=== PATIENT | female | born 1990 | race American Indian/Alaskan Native ===

== ENCOUNTER 2020-07-19 12:52 | Emergency (ER) | payer SELFPAY ==
[2020-07-19] MEDS ORDERED: DIPHtheria,PERTUSSIS(ACELL),TETANUS VACCINE/PF 0.5 ML VIAL IM ONE (14:37)
--- NOTE | 2020-07-19 14:37 | Event Note ---
ED Screening Note ED Screening Note: laceration to the left index finger occurred at 11:30 PM cut while opening a dockery wrapping with a knife no numbness or weakness tdap unsure pmhx asthma no allergies to meds LNMP: 06/28/2020 This initial assessment/diagnostic orders/clinical plan/treatment(s) is/are subject to change based on patients health status, clinical progression and re- assessment by fellow clinical providers in the ED. Further treatment and workup at subsequent clinical providers discretion. Patient/guardian urged not to elope from the ED as their condition may be serious if not clinically assessed and managed. Initial orders include: vshaped laceration to the palmar surface of the index finger no muscle/tendon involvement no signs of foreign body tdap ACC eval
[2020-07-19] MEDS ORDERED: LIDOCAINE (1%) 10 MG/1 ML VIAL 20 ML MDV INFILTRATI ONE (15:01)
--- NOTE | 2020-07-19 15:10 | Emergency Department Report ---
ED General Adult HPI - General Chief complaint: Extremity Injury, Upper Stated complaint: CUT FINGER Time Seen by Provider: 07/19/20 14:32 Source: patient Mode of arrival: Ambulatory Limitations: No Limitations - History of Present Illness Initial comments: 29-year-old -[place] female patient presents with complaints of laceration to the left index finger today. Patient states she cut the finger with a clean knife while trying to open a pack of dockery. She denies any difficulty moving the finger or loss of sensation. Patient rates her pain as a 7/10 in severity. She is unsure of her last tetanus vaccination. -: Sudden Severity scale (0 -10): 6 - Related Data Previous Rx's Medication Instructions Recorded Last Taken Type Ibuprofen [Motrin 800 MG tab] 800 mg PO Q8HR PRN #21 tablet 07/19/20 Unknown Rx Mupirocin [Bactroban 2% OINT] 1 applic TP TID 7 Days #1 tube 07/19/20 Unknown Rx Allergies Allergy/AdvReac Type Severity Reaction Status Date / Time No Known Allergies Allergy Unverified 07/19/20 13:49 ED Review of Systems ROS: Stated complaint: CUT FINGER Other details as noted in HPI Constitutional: denies: chills, fever, malaise Musculoskeletal: denies: arthralgia Skin: as per HPI. denies: rash, change in color ED Past Medical Hx - Past Medical History Previous Medical History?: Yes Hx Hypertension: Yes - Surgical History Past Surgical History?: No - Medications Home Medications: Home Medications Medication Instructions Recorded Confirmed Last Taken Type Ibuprofen [Motrin 800 MG tab] 800 mg PO Q8HR PRN #21 tablet 07/19/20 Unknown Rx Mupirocin [Bactroban 2% OINT] 1 applic TP TID 7 Days #1 tube 07/19/20 Unknown Rx ED Physical Exam - General Limitations: No Limitations General appearance: alert, in no apparent distress, obese - Head Head exam: Present: atraumatic, normocephalic - Respiratory Respiratory exam: Absent: respiratory distress - Cardiovascular Cardiovascular Exam: Present: regular rate - Extremities Exam Extremities exam: Present: full ROM - Back Exam Back exam: Present: full ROM - Neurological Exam Neurological exam: Present: alert, oriented X3 - Psychiatric Psychiatric exam: Present: normal affect, normal mood - Skin Skin exam: Present: warm, dry, normal color. Absent: intact (Approximately 2 cm laceration noted to anterior distal left index finger with minimal bleeding; no obvious foreign bodies are noted patient has full range of motion of the finger and normal perfusion; and sensation), rash ED Course Vital Signs 07/19/20 13:49 Temperature 98 F Pulse Rate 73 Respiratory 22 Rate Blood Pressure 129/48 [Right] O2 Sat by Pulse 100 Oximetry - Laceration /Wound Repair Left Finger Wound Length (cm): 2 Wound's Depth, Shape: linear Wound Explored: no foreign body removed Irrigated w/ Saline (ccs): 40 Anesthesia: 1% Lidocaine Volume Anesthetic (ccs): 2 Suture Size/Type: 4:0, proline Number of Sutures: 4 (Simple interrupted) Layer Closure?: No Sterile Dressing Applied?: Yes Progress: Minimal bleeding occurred. Patient tolerated procedure well without any immediate complications. Normal perfusion and range of motion of finger noted post ED Medical Decision Making - Medical Decision Making 29-year-old -[place] female patient presents with complaints of laceration to the left index finger today. Patient states she cut the finger with a clean knife while trying to open a pack of dockery. She denies any difficulty moving the finger or loss of sensation. Patient rates her pain as a 7/10 in severity. She is unsure of her last tetanus vaccination. Laceration repair. Patient tolerated procedure well without any immediate complications. Discussed wound care and strict return precautions in detail with patient who verbalized understanding. Patient to return to the ED in 10 days for suture removal. Prescription for mupirocin given for infection prevention. Critical care attestation.: If time is entered above; I have spent that time in minutes in the direct care of this critically ill patient, excluding procedure time. ED Disposition Clinical Impression: Laceration of finger Qualifiers: Encounter type: initial encounter Finger: index finger Damage to nail status: without damage Foreign body presence: without foreign body Laterality: left Qualified Code(s): S61.211A - Laceration without foreign body of left index finger without damage to nail, initial encounter Disposition: TO HOME OR SELFCARE Is pt being admited?: No Condition: Stable Instructions: Sutured Wound Care Additional Instructions: Return to the emergency department in 10 days for suture removal Prescriptions: Mupirocin [Bactroban 2% OINT] 1 applic TP TID 7 Days #1 tube Ibuprofen [Motrin 800 MG tab] 800 mg PO Q8HR PRN #21 tablet PRN Reason: pain
[2020-07-19 16:08] VITALS: BP 147/67
== END 2020-07-19 16:08 | disposition home or self-care (01) ==
LOC: ED 12:52
DX: S61.211A Laceration without foreign body of left index finger without damage to nail, initial encounter (principal); I10 Essential (primary) hypertension; X58.XXXA Exposure to other specified factors, initial encounter; Y93.89 Activity, other specified; Y92.89 Other specified places as the place of occurrence of the external cause; Y99.8 Other external cause status
CPT/HCPCS: 90471; 90715; 99281

== ENCOUNTER 2020-08-02 12:40 | Emergency (ER) | payer SELFPAY ==
[2020-08-02 12:46] VITALS: BP 137/94
--- NOTE | 2020-08-02 15:08 | Emergency Department Report ---
Suture/Staple Removal - HPI Chief Complaint: Laceration/Recheck/Suture Stated Complaint: RRMOVE STITCHS Time Seen by Provider: 08/02/20 15:01 When Sutures or Heidi Placed: 07/19/20 Wound Location: left index finger ED Review of Systems ROS: Stated complaint: RRMOVE STITCHS Other details as noted in HPI Comment: All other systems reviewed and negative ED Past Medical Hx - Past Medical History Previous Medical History?: Yes Hx Hypertension: Yes Additional medical history: Left index finger lac - Surgical History Past Surgical History?: Yes Additional Surgical History: x 2 - Medications Home Medications: Home Medications Medication Instructions Recorded Confirmed Last Taken Type Ibuprofen [Motrin 800 MG tab] 800 mg PO Q8HR PRN #21 tablet 07/19/20 Unknown Rx Mupirocin [Bactroban 2% OINT] 1 applic TP TID 7 Days #1 tube 07/19/20 Unknown Rx Suture Removal Exam - Exam General: Vital signs noted. No distress. Alert and acting appropriately. Wound: No Pathologic Erythema, No Tenderness, No Drainage, No Pus, No Wound Dehiscence Other Systems: All other systems reviewed and are unremarkable. ED Course Vital Signs 08/02/20 12:44 Temperature 98.8 F Pulse Rate 81 Respiratory 20 Rate Blood Pressure 137/94 [Right] O2 Sat by Pulse 97 Oximetry ED Recheck MDM - Medical Decision Making Patient is a 29-year-old female presents emergency room for suture removal. She had the sutures placed at this facility on 07/19/2020 after she accidentally cut herself with a kitchen knife. She states that she was given a Tdap during her last visit. She denies any fever, vomiting, chills, drainage, swelling, increased pain. No past medical history. No allergies to medications. Vitals are stable. On exam wound appears to be well-healing, there is some scabbing present, no signs of wound dehiscence, no erythema, no edema, full range of motion, no induration, no fluctuance, no necrosis, neurovascular intact. All sutures removed without difficulty and without complication, no wound dehiscence. Discussed continued wound care with patient. Advised to follow-up with her primary care doctor. Return to emergency room for any new or worsening symptoms. Critical care attestation.: If time is entered above; I have spent that time in minutes in the direct care of this critically ill patient, excluding procedure time. ED Disposition Clinical Impression: Encounter for removal of sutures Disposition: DC- TO HOME OR SELFCARE Is pt being admited?: No Does the pt Need Aspirin: No Condition: Stable Instructions: Suture Removal, Care After Additional Instructions: follow-up with a primary care doctor. Return to emergency room for any new or worsening symptoms. Referrals: ALDO GAMEZ MD [Staff Physician] - 2-3 Days [facility] [Provider Group] - 2-3 Days Time of Disposition: 15:11 Print Language: UZBEK
== END 2020-08-02 15:37 | disposition home or self-care (01) ==
LOC: ED 12:40
DX: T14.8XXD Other injury of unspecified body region, subsequent encounter (principal); Z53.21 Procedure and treatment not carried out due to patient leaving prior to being seen by health care provider

== ENCOUNTER 2021-05-15 14:52 | Emergency (ER) | payer SELFPAY ==
--- NOTE | 2021-05-15 15:17 | Emergency Department Report ---
ED Female HPI - General Chief complaint: Urogenital-Female Stated complaint: VAGINAL CHECK Time Seen by Provider: 05/15/21 15:14 Source: patient Mode of arrival: Ambulatory Limitations: No Limitations - History of Present Illness Initial comments: Patient presents secondary to an STD exposure. She states that her significant other cheated on her and they had unprotected intercourse. She has had some vaginal discharge and itching for the last day. She states that it feels like a yeast infection. However, she is concerned that she could have been exposed to something else. She cannot state that she was definitely exposed to gonorrhea or chlamydia. However she wanted to be safe. Patient has had a yeast infection before and believes that that is what this feels like. There is no dysuria or frequency. She has no abdominal pain or flank pain. There has been no vaginal bleeding or trauma otherwise. - Related Data Previous Rx's Medication Instructions Recorded Last Taken Type Ibuprofen [Motrin 800 MG tab] 800 mg PO Q8HR PRN #21 tablet 07/19/20 Unknown Rx Mupirocin [Bactroban 2% OINT] 1 applic TP TID 7 Days #1 tube 07/19/20 Unknown Rx Fluconazole [Diflucan TAB] 200 mg PO QDAY #1 tablet 05/15/21 Unknown Rx Allergies Allergy/AdvReac Type Severity Reaction Status Date / Time No Known Allergies Allergy Unverified 07/19/20 13:49 ED Review of Systems ROS: Stated complaint: VAGINAL CHECK Other details as noted in HPI Comment: All other systems reviewed and negative Constitutional: denies: fever Eyes: denies: eye pain ENT: denies: throat pain Respiratory: denies: cough Cardiovascular: denies: chest pain Endocrine: denies: unexplained weight loss Gastrointestinal: denies: abdominal pain Genitourinary: as per HPI Musculoskeletal: denies: back pain Skin: denies: rash Neurological: denies: headache Hematological/Lymphatic: denies: easy bruising ED Past Medical Hx - Past Medical History Previous Medical History?: Yes Hx Hypertension: Yes Additional medical history: Left index finger lac - Surgical History Past Surgical History?: Yes Additional Surgical History: x 2 - Family History Family history: hypertension - Medications Home Medications: Home Medications Medication Instructions Recorded Confirmed Last Taken Type Ibuprofen [Motrin 800 MG tab] 800 mg PO Q8HR PRN #21 tablet 07/19/20 Unknown Rx Mupirocin [Bactroban 2% OINT] 1 applic TP TID 7 Days #1 tube 07/19/20 Unknown Rx Fluconazole [Diflucan TAB] 200 mg PO QDAY #1 tablet 05/15/21 Unknown Rx ED Physical Exam - General Limitations: No Limitations General appearance: alert, in no apparent distress, obese - Head Head exam: Present: atraumatic, normocephalic, normal inspection - Eye Eye exam: Present: normal appearance, EOMI. Absent: scleral icterus - ENT ENT exam: Present: normal exam, normal orophraynx, normal external ear exam - Neck Neck exam: Present: full ROM. Absent: meningismus - Respiratory Respiratory exam: Absent: respiratory distress - Cardiovascular Cardiovascular Exam: Present: regular rate, normal rhythm, other (Normal pulses) - GI/Abdominal GI/Abdominal exam: Present: soft. Absent: distended, tenderness - Extremities Exam Extremities exam: Present: normal capillary refill - Back Exam Back exam: Absent: CVA tenderness (R), CVA tenderness (L) - Neurological Exam Neurological exam: Present: alert, oriented X3, normal gait. Absent: motor sensory deficit - Psychiatric Psychiatric exam: Present: normal affect, normal mood - Skin Skin exam: Present: warm, dry ED Course Vital Signs 05/15/21 15:05 Temperature 98 F Respiratory 16 Rate Blood Pressure 153/98 [Left] O2 Sat by Pulse 96 Oximetry - Reevaluation(s) Reevaluation #1: 05/15/21 15:30 Patient was treated empirically for sexually transmitted infections. She was instructed to follow the regular physician and to avoid sexual contact until her symptoms resolved. ED Medical Decision Making - Medical Decision Making Patient presented for an STD exposure. She was concerned for sexually transmitted infections. As we will not get test results today, she preferred to have empiric treatment. Rocephin and Zithromax were administered. Because she did describe itching and reported yeastlike symptoms, she was also given a prescription for Diflucan. There was certainly no evidence of abdominal tenderness or peritonitis. I am not concerned for TOA. She has no CVA tenderness. Critical Care Time: No Critical care attestation.: If time is entered above; I have spent that time in minutes in the direct care of this critically ill patient, excluding procedure time. ED Disposition Clinical Impression: STD exposure Disposition: HOME / SELF CARE / HOMELESS Is pt being admited?: No Does the pt Need Aspirin: No Condition: Stable Instructions: Vaginitis, [id number], Safe Sex Additional Instructions: Avoid intercourse for 7 days. Drink plenty water. Return for problems. Follow-up with your doctor for test results. Prescriptions: Fluconazole [Diflucan TAB] 200 mg PO QDAY #1 tablet
[2021-05-15] MEDS ORDERED: AZITHROMYCIN 1 GM ORAL PWDR PACKET PO ONE (15:18)
[2021-05-15] MEDS ORDERED: LIDOCAINE-MPF (1%) 10 MG/1 ML VIAL 5 ML INFILTRATI ONE (15:18)
[2021-05-15 15:44] VITALS: BP 127/79
== END 2021-05-15 15:43 | disposition home or self-care (01) ==
LOC: ED 14:52
DX: N89.8 Other specified noninflammatory disorders of vagina (principal); L29.9 Pruritus, unspecified; Z20.2 Contact with and (suspected) exposure to infections with a predominantly sexual mode of transmission; I10 Essential (primary) hypertension
CPT/HCPCS: 96372; 99282; J0696